=== PATIENT | male | born 1960 | race Caucasian/White ===

== ENCOUNTER 2016-11-15 14:19 | Inpatient (IN) ==
[2016-11-15 14:53] LABS: MANUAL DIFF NEEDED? NO
[2016-11-15 14:56] LABS: BASO% 0.6 % (0.0-0.8); EOS# 0.34 X1000 (0.0-0.7); EOS% 3.1 % (0.0-10.0); HEMATOCRIT 45.9 % (42.0-52.0); HEMOGLOBIN 15.1 g/dL (14.0-18.0); IMM GRAN# 0.08 X1000 (0.0-0.04); IMM GRAN% 0.7 % (0.0-0.5); LYMPH# 1.93 X1000 (1.2-3.4); LYMPH% 17.8 % (20.5-51.1); MCH 31.2 PG (27-31); MCHC 32.9 g/dL (33-37); MCV 94.8 FL (81-99); MONO# 0.81 X1000 (0.11-0.59); MONO% 7.5 % (1.7-9.3); MPV 9.6 FL (7.4-10.4); NEUT% 70.3 % (42.2-75.2); PLT 221 X1000 (130-400); RBC 4.84 XMIL (4.7-6.1)
[2016-11-15 15:11] LABS: INR 0.98 (0.86-1.15); PROTIME 13.3 Seconds (12.1-15.5)
[2016-11-15 15:30] LABS: AGAP 11; ALBUMIN 3.8 g/dL (3.5-5.0); ALKALINE PHOSPHATASE 122 U/L (32-122); BUN 17 mg/dL (8-22); CALCIUM 8.9 mg/dL (8.8-10.2); CHLORIDE 100 mmol/L (98-107); COSMO 282; GOT 16 U/L (10-34); GPT 19 U/L (10-44); SODIUM 138 mmol/L (136-145); TCO2 27 mmol/L (25-35); TOTAL PROTEIN 7.3 g/dL (6.3-8.3)
[2016-11-15] MEDS ORDERED: TYLENOL PO PRN (17:28)
[2016-11-15] MEDS ORDERED: NS 1,000 ML IV ONE (17:28)
--- NOTE | 2016-11-15 17:35 | PROVIDER DOCUMENTATION ---
This chart was entered by Simran Jimenez Scribe, acting as scribe for Wilder Pelletier MD. HPI-General Adult - General Chief Complaint: Extremity Pain Stated Complaint: EXTREMITY PAIN Time Seen by Provider: 11/15/16 15:05 Source: patient Allergies/Adverse Reactions: Patient Allergies Allergy/AdvReac Type Severity Reaction Status Date / Time No Known Allergies Allergy Verified 11/15/16 14:29 Home Medications: Home Medication List Medication Instructions Recorded Confirmed Last Taken Type Apixaban [Eliquis] 5 mg PO DAILY 11/15/16 11/15/16 Unknown History - History of Present Illness -Gen Adult Nature of Presenting Problems: 56 yo M presents to the ER with complaint of LLE swelling and tenderness, x2 weeks worse yesterday and today. Has a hx of DVT and PT x12 years ago after knee surgery. Takes Eloquis daily. Has pain in his L calf and pain is now radiating to his groin. Denies any CP or SOB. Location of Pain/Injury: reports: lower extremity (LLE) Pain Radiation: reports: groin Onset/Duration: reports: other (2 weeks) Associated Symptoms: denies: shortness of breath Review of Systems - Adult - REVIEW OF SYSTEMS - ADULT Constitutional: denies: chills, fever Eyes: reports: no symptoms reported Ears, Nose, Mouth & Throat: reports: no symptoms reported Cardiovascular: denies: chest pain, palpitations Respiratory: denies: cough, shortness of breath Gastrointestinal: reports: no symptoms reported Genitourinary: reports: no symptoms reported Musculoskeletal: reports: joint pain, joint swelling Integumentary: reports: no symptoms reported Neurological: reports: no symptoms reported Psychiatric: reports: no symptoms reported Endocrine: reports: no symptoms reported Hematologic/Lymphatic: reports: no symptoms reported Allergic/Immunologic: reports: no symptoms reported All Other Systems: Reviewed and Negative Past History - Adult - PAST MEDICAL HISTORY-ADULT Review of Records: reports: Nursing Assessment Review, Medications Reviewed - IMMUNIZATION STATUS Childhood Immunizations: See Nurse Assessment Flu Vaccine: See Nurse Assessment Physical Exam-General - PHYSICAL EXAM-ADULT Initial Vital Signs Reviewed: Yes - CONSTITUTIONAL General Appearance: alert, no apparent distress - EYES Eyes: PERRL/EOMI, pink conjunctivae - HEAD, EARS, NOSE, MOUTH & THROAT HENMT: normocephalic/atraumatic, normal ENT inspection - NECK Neck: supple, normal inspection - RESPIRATORY Respiratory: chest non-tender, lungs clear, no respiratory distress, no accessory muscle use - CARDIOVASCULAR Cardiovascular: normal peripheral pulses, regular rate, rhythm. negative: no edema - MUSCULOSKELETAL Back Exam: no CVA tenderness, no vertebral tenderness Extremity: normal capillary refill, calf tenderness (L), inflammation (L calf, L thigh), pedal edema, swelling (L calf, L thigh). negative: pulse deficit Peripheral Pulses: dorsalis-pedis (R): 2+, dorsalis-pedis (L): 2+ - SKIN Integumentary: normal color, warm/dry, erythema (L calf), other (venous pooling of LLE) - NEUROLOGIC Neurologic: grossly normal, no motor/sensory deficits - PSYCHIATRIC Psych/Mental Status: normal mood/affect, normal thought content, normal thought process, oriented x 3 Progress - PLAN OF CARE/RESULTS Progress/Plan/Lab Results: Vital Signs - 8 hr 11/15/16 14:24 Temperature 98 F Pulse Rate 119 H Respiratory Rate 18 Blood Pressure 133/67 O2 Sat by Pulse Oximetry 97 Laboratory Results - last 24 hr 11/15/16 14:40 WBC 10.85 H RBC 4.84 Hgb 15.1 Hct 45.9 MCV 94.8 MCH 31.2 H MCHC 32.9 L RDW Std Deviation 14.6 H Plt Count 221 MPV 9.6 Immature Gran % (Auto) 0.7 H Neut % (Auto) 70.3 Lymph % (Auto) 17.8 L Dickenson % (Auto) 7.5 Eos % (Auto) 3.1 Baso % (Auto) 0.6 Immature Gran # (Auto) 0.08 H Neut # (Auto) 7.63 H Lymph # (Auto) 1.93 Dickenson # (Auto) 0.81 H Eos # (Auto) 0.34 Baso # (Auto) 0.06 Orders Category Date Time Status CBC WITH DIFF [HEME] Stat Lab 11/15/16 14:40 Completed COMPREHENSIVE METABOLIC PANEL [CHEM] Stat Lab 11/15/16 14:40 Received D-DIMER [address] [COAG] Stat Lab 11/15/16 14:40 Received PROTIME WITH INR PL [COAG] Stat Lab 11/15/16 14:40 Received Result Diagrams: 11/15/16 14:40 11/15/16 14:40 - ULTRASOUND (By Radiology) 1 US Study: other (vascular) Impression: Abnormal (extensive DVT from L calf to groin) - CONSULTS/PCP/HOSPITALIST Notification #1 *Consult/PCP/Hospitalist*: Dr. Castro Time Discussed: 17:18 Reason/Comments: Advised hypercoag set and lovenox, then admit Consult Disposition: Admit Departure - Departure Time of Disposition Decision: 17:25 DIAGNOSIS: DVT (deep venous thrombosis) Qualifiers: DVT location: lower extremity Affected thrombotic vein of extremity: femoral Laterality: left Chronicity: acute Qualified Code(s): I82.412 - Acute embolism and thrombosis of left femoral vein Disposition: ADMITTED INPATIENT 09 Certified Medical Emergency: Emergent Condition: Stable Referrals and Follow-Ups: None,PCP [Primary Care Provider] - - Critical Care Note This patient required my direct & personal management of CC.: No This chart was documented by the indicated scribe, (Simran Jimenez Scribe) and accurately reflects the services I performed and decisions made by me, Wilder Pelletier MD, as attested by the provider's signature.
[2016-11-15] MEDS: NORCO-5 PO PRN (17:49)
--- NOTE | 2016-11-15 18:23 | HISTORY AND PHYSICAL ---
CHIEF COMPLAINT: Left lower extremity swelling and pain. HISTORY OF PRESENT ILLNESS: This is a 56-year-old male with a history of prior DVT and PE following orthopedic surgery who presented to the emergency room complaining of 2 weeks of left calf pain. He states over the last 2 days the pain is radiated up into his left groin. He denied any injury, any recent travel or long periods of sitting. Venous Doppler was performed. The patient was found to have a left lower extremity DVT. Labs were drawn. He is given Lovenox 1 mg/kg subcu and he is being admitted for further evaluation and treatment. He has not taken the Eliquis as prescribed as he could not afford any longer not having insurance. He has taken it daily, then not every day. 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 SURGICAL HISTORY: Total knee replaced. SOCIAL HISTORY: He smokes about half a pack a day. He denies alcohol or illicit drug use. ALLERGIES: No known drug allergies. HOME MEDICATIONS: Eliquis 5 mg p.o. daily. REVIEW OF SYSTEMS: 14 point review of systems reveals pertinent positives as in HPI, all other systems negative. PHYSICAL EXAM: CARDIOVASCULAR - Regular rate and rhythm, no rubs, murmurs or gallops appreciated PULMONARY - Bilateral breath sounds clear, chest rises and falls symmetrically with respiration GASTROENTEROLOGY - Abdomen is soft, nontender, with bowel sounds in all 4 quadrants EXTREMITIES - No clubbing, edema or cyanosis. Right calf nontender, Left calf tender, pulses palpable x4 NEUROLOGIC - Alert & oriented X3 DIAGNOSTICS: WBC is 10.8 with a hemoglobin of 15.1, hematocrit 45.9 and platelets of 221,000. D- dimer is 5.38, sodium is 138, potassium 4, BUN 17, creatinine 1.1 with a glucose of 188. ASSESSMENT AND PLAN: 1. Left lower extremity deep vein thrombosis in a patient who has a history of deep vein thrombosis and pulmonary embolism. Hypercoagulable workup was performed in the emergency room. Dr Pelletier did speak with Dr Castro The patient was given a milligram per kilogram of Lovenox. Will continue this b.i.d and transition to Xarelto. This is not likely an Eliquis failure more a compliance failure. Further treatments pending hospital course. Dictated by ELI Beltre for Ronny Brown MD cc: ELI Beltre MD [facility]
[2016-11-15] MEDS: LOVENOX SUBQ SCH (20:41)
[2016-11-16] MEDS: NORCO-5 PO PRN (03:44)
[2016-11-16 07:38] VITALS: BP 138/86
[2016-11-16] MEDS: LOVENOX SUBQ SCH (08:56)
[2016-11-16] MEDS ORDERED: XARELTO PO SCH (11:30)
--- NOTE | 2016-11-16 22:23 | DISCHARGE SUMMARY ---
ADMISSION DATE: 11/15/2016 DISCHARGE DATE: 11/16/2016 DIAGNOSES: 1. Deep venous thrombosis, left lower extremity, in a patient on Eliquis. 2. History of deep venous thrombosis and pulmonary embolism. DIAGNOSTICS: Venous ultrasound of left leg revealed a deep venous thrombosis,acute. HOSPITAL COURSE: Mr. Carpio presented to the emergency room with left lower extremity swelling and calf pain. He was found to have a DVT per venous Doppler. He was initially given Lovenox 1 mg/kg subcutaneous, and transitioned over to Xarelto 15 mg b.i.d. He states that he had a DVT and PE following a knee replacement. This was greater than 8 years ago. He does state that he has not had insurance, and he does not have a primary care physician. Therefore, he has not been compliant with his Eliquis, taking it only daily, and then not every day, trying to stretch the prescription out. DISCHARGE PHYSICAL EXAMINATION: Cardiovascular: Regular rate and rhythm. S1, S2 appreciated. Pulmonary: Breath sounds are clear. No increased work of breathing noted. Gastrointestinal: Abdomen is soft, nontender, nondistended, with bowel sounds in all 4 quadrants. Extremities: No clubbing, cyanosis, or edema. Calves are nontender. Pulses are palpable x4. DISCHARGE MEDICATIONS: Xarelto 15 mg 1 p.o. b.i.d. for 21 days, then Xarelto 20 mg daily. DISCHARGE VITAL SIGNS: Blood pressure is 138/86, with a heart rate of 94, respirations are 16, temperature is 97.5 degrees, with room air saturations of 95-97%. DISCHARGE ACTIVITY: As tolerated. FOLLOWUP: He needs to follow up with ELI Wadsworth, in 1-2 weeks. The patient has been given the phone number to contact this clinic. The patient was given a 30-day starter pack of Xarelto per Dr. Brown, which did contain the 21 days of 15 mg b.i.d., and 1 week of 20 mg. He was also given a prescription for 20 mg tablets daily. He is being discharged home in stable condition with family members. TIME SPENT: This is a greater than 30 minute discharge, from 11:50 to 12:30. Dictated by ELI Beltre for Ronny Brown MD cc: ELI Beltre MD
--- NOTE | 2016-11-18 07:07 | Extremity Venous Study ---
PROCEDURE NAME: Venous U/S Left Leg - 11/15/2016 LEFT LOWER EXTREMITY VENOUS DOPPLER ULTRASOUND: FINDINGS: There is extensive deep venous thrombosis throughout the veins of the left lower extremity including the common femoral vein, superficial femoral vein, popliteal vein, and veins in the calf. IMPRESSION: Extensive left lower extremity deep venous thrombosis. A preliminary report was given to Dr. Pelletier at 5:15 p.m. on 11/15/2016.
== END 2016-11-16 12:35 | disposition home or self-care (01) ==
LOC: P.MEDSURG 14:19 → P.ED 14:19 → OBSVTOIN 18:09 → SUATTDRO 18:09
PROVIDERS: ATTEND Family Medicine

== ENCOUNTER 2017-02-02 14:21 | Inpatient (IN) ==
--- NOTE | 2017-02-02 16:25 | Extremity Venous Study ---
EXAM: Venous U/S Left Leg - 02/02/2017 HISTORY: swollen left leg with hx and tx for dvt in same le TECHNIQUE: Left lower extremity Doppler venous ultrasound COMPARISON: 11/15/2016 FINDINGS: There is thrombus throughout much of the deep venous system of the left lower extremity including the common femoral vein, superficial femoral vein, popliteal vein, and veins of the calf. This is similar to that which was seen on the previous exam. IMPRESSION: Extensive left lower extremity deep venous thrombosis. Electronically signed by Esvin Card 02/02/2017 4:23 PM
[2017-02-02 16:43] LABS: INR 1.18 (0.86-1.15); PROTIME 15.3 Seconds (12.1-15.5); PTT PL 30.7 Seconds (22.6-43.9)
--- NOTE | 2017-02-02 16:56 | PROVIDER DOCUMENTATION ---
This chart was entered by Betsy Ferrer Scribe, acting as scribe for Silvio Noland MD. HPI-Musculoskeletal Pain/Inj - GENERAL Chief Complaint: Extremity Pain Stated Complaint: ABD PAIN/HX OF BLOOD CLOT Time Seen by Provider: 02/02/17 14:49 Source: patient - HX OF PRESENT ILLNESS-MUSKULOSKELTAL Nature of Presenting Problem: Pt is 56 y/o M presents to the ED with L lower leg pain. Pt states hx of DVT's. Pt states was diagnosed with DVT [address] Castro. Pt states he is on blood thinners. Pt states swelling in L lower leg. Pt states swelling went down and then started again. Pt states had an appointment for an outpatient US and did not have all his paperwork so the office canceled the appointment. Quality of Pain: reports: aching Severity in ED: moderate Onset/Duration: other (2 mths) Timing: still present Modifying Factors: improves with: nothing Any recent injury?: No Locality of Occurance: Home Similar Symptoms Previously?: Yes Recently seen or treated by another doctor?: Yes - LOWER EXTREMITY PAIN/INJURY Lower Extremities Pain: leg: left (lower ) Context / Method of Injury: reports: other (hx of DVT's) Associated Symptoms: reports: weakness in legs/feet (L leg) Review of Systems - Adult - REVIEW OF SYSTEMS - ADULT Constitutional: reports: no symptoms reported Eyes: reports: no symptoms reported Ears, Nose, Mouth & Throat: reports: no symptoms reported Cardiovascular: reports: no symptoms reported Respiratory: reports: no symptoms reported Gastrointestinal: reports: no symptoms reported Genitourinary: reports: no symptoms reported Musculoskeletal: reports: other (L lower leg pain). denies: back pain, neck pain Integumentary: reports: other (L lower leg swelling). denies: hives, itching, rash Neurological: reports: no symptoms reported Psychiatric: reports: no symptoms reported Endocrine: reports: no symptoms reported Hematologic/Lymphatic: reports: no symptoms reported Allergic/Immunologic: reports: no symptoms reported All Other Systems: Reviewed and Negative Past History - Adult - PAST MEDICAL HISTORY-ADULT Review of Records: reports: Nursing Assessment Review, Medications Reviewed, Social history reviewed & non-contributory. Major Childhood Illnesses: reports: denies history Cardiovascular: reports: denies history Respiratory: reports: denies history Gastrointestinal: reports: denies history Obstetrical/Gynecological: reports: denies history Genitourinary: reports: denies history Musculoskeletal: reports: denies history Neurological: reports: denies history Endocrine/Immune: reports: denies history Other Conditions: reports: denies history - PRIOR SURGERIES/PROCEDURES Surgical/Procedure History: reports: joint replacement (L knee) - IMMUNIZATION STATUS Childhood Immunizations: See Nurse Assessment Flu Vaccine: See Nurse Assessment - FAMILY HISTORY Family History: reviewed, not pertinent - SOCIAL HISTORY Smoking: cigarettes, greater than 1 pack/day Provider spent 3-5 mins advising pt. on dangers of tobacco.: Discussed manners to quit use, and f/u contacts for add'l counseling. Substance Use: denies Living Situation: family Physical Exam-Injury Related - Physical Exam-Injury Related General Appearance: appears well, alert, no apparent distress Eyes: PERRL/EOMI, pink conjunctivae Head, Ears, Nose, Mouth & Throat: normocephalic/atraumatic, moist mucous membranes, normal ENT inspection Neck: non-tender, full range of motion, supple, normal inspection Respiratory: chest non-tender, lungs clear, normal breath sounds Cardiovascular: normal peripheral pulses, regular rate, rhythm Abdominal Exam: normal bowel sounds, non tender, soft Lymphatic: no adenopathy Back Exam: normal inspection Extremity: erythema (L lower leg), swelling (L lower leg), tenderness (L lower leg) Integumentary: erythema (L lower leg), swelling (L lower leg), tenderness (L lower leg), warm (L lower leg) Neurologic: grossly normal Psych/Mental Status: normal mood/affect, oriented x 3 Progress - PLAN OF CARE/RESULTS Progress/Plan/Lab Results: Vital Signs - 8 hr 02/02/17 14:38 Temperature 98.6 F Pulse Rate 114 H Respiratory Rate 16 Blood Pressure 138/95 O2 Sat by Pulse Oximetry 96 Laboratory Results - last 24 hr 02/02/17 15:55 PT 15.3 INR 1.18 H APTT (Factor Assay) 30.7 D-Dimer 1.96 H Orders Category Date Time Status Ddimer [D-DIMER PL] [COAG] Stat Lab 02/02/17 15:55 Completed [address]IME WITH INR PL [COAG] Stat Lab 02/02/17 15:[address] [COAG] Stat Lab 02/02/17 15:55 Completed Venous U/S Left Leg Stat Ther 02/02/17 15:16 Completed - ULTRASOUND (By Radiology) 1 US Study: other (venous U/S left leg) Impression: Abnormal (extensive left lower extremity deep venous thrombosis.) - CONSULTS/PCP/HOSPITALIST Notification #1 *Consult/PCP/Hospitalist*: Dr. Marcos Time Discussed: 16:48 Reason/Comments: Dr. Noland consulted with Dr. Marcos about Pt. #2 Consult: Dr. Brown Time Discussed: 16:48 (Hospitalist accepted admit ) Reason/Comments: Dr. Noland consulted with Dr. Brown about Pt Consult Disposition: Admit Departure - Departure Date of Disposition Decision: 02/02/17 Time of Disposition Decision: 16:49 DIAGNOSIS: DVT (deep venous thrombosis) Disposition: ADMITTED INPATIENT 09 Certified Medical Emergency: Emergent Condition: Stable Referrals and Follow-Ups: None,PCP [Primary Care Provider] - - Critical Care Note This patient required my direct & personal management of CC.: No This chart was documented by the indicated scribe, (Betsy Ferrer Scribe) and accurately reflects the services I performed and decisions made by me, Silvio Noland MD, as attested by the provider's signature.
[2017-02-02] MEDS ORDERED: LOVENOX 1 MG/KG SUBQ SCH (19:15)
[2017-02-02] MEDS ORDERED: LOVENOX SUBQ ONE (19:26)
[2017-02-02] MEDS ORDERED: DILAUDID IM PRN (19:26)
[2017-02-02] MEDS ORDERED: TYLENOL PO PRN (19:26)
[2017-02-02] MEDS ORDERED: ZOFRAN IV PRN (19:26)
[2017-02-02 19:31] LABS: MANUAL DIFF NEEDED? NO
[2017-02-02 19:37] LABS: BASO% 0.8 % (0.0-0.8); EOS# 0.31 X1000 (0.0-0.7); EOS% 3.3 % (0.0-10.0); HEMATOCRIT 43.3 % (42.0-52.0); HEMOGLOBIN 14.3 g/dL (14.0-18.0); IMM GRAN# 0.04 X1000 (0.0-0.04); IMM GRAN% 0.4 % (0.0-0.5); LYMPH# 2.64 X1000 (1.2-3.4); LYMPH% 27.8 % (20.5-51.1); MCH 30.8 PG (27-31); MCV 93.3 FL (81-99); MONO# 0.96 X1000 (0.11-0.59); MONO% 10.1 % (1.7-9.3); MPV 10.4 FL (7.4-10.4); NEUT% 57.6 % (42.2-75.2); PLT 280 X1000 (130-400); RBC 4.64 XMIL (4.7-6.1)
[2017-02-02 20:15] LABS: AGAP 9; ALBUMIN 3.7 g/dL (3.5-5.0); ALKALINE PHOSPHATASE 115 U/L (32-122); BUN 17 mg/dL (8-22); CHLORIDE 102 mmol/L (98-107); COSMO 277; GOT 20 U/L (10-34); GPT 24 U/L (10-44); SODIUM 138 mmol/L (136-145); TCO2 28 mmol/L (25-35)
--- NOTE | 2017-02-03 00:05 | HISTORY AND PHYSICAL ---
CHIEF COMPLAINT: Left lower extremity swelling and pain. HISTORY OF PRESENT ILLNESS: This is a 56-year-old male with a prior history of DVT and pulmonary embolus who has failed Eliquis and now Xarelto. He presents for evaluation of LLE edema and pain. Venous doppler revealed extensive left lower extremity DVT including the common femoral vein, superficial femoral vein, popliteal vein and veins of the calf. Similar to a venous doppler performed November 2016. Of note, the patient does have a history of prior DVT and PE following surgery and again in November 2016 - Prior to November, he had been prescribed Eliquis and was unable to afford after losing his insurance He had been off Eliquis quite some time, returning with extensive LLE DVT. PAST MEDICAL HISTORY: DVT and PE after total knee replacement then repeat DVT to the left lower extremity in November 2016. PAST SURGICAL HISTORY: Total knee replacement. SOCIAL HISTORY: He smokes about a half a pack a day. He denies alcohol or illicit drug use. ALLERGIES: No known drug allergies. HOME MEDICATIONS: Xarelto 20 mg daily. REVIEW OF SYSTEMS: A 14 point review of systems is discussed with patient with pertinent positives stated in the HPI. All other systems are negative. PHYSICAL EXAMINATION: GENERAL: This is a 56-year-old male who is sitting in the bed with no distress. VITAL SIGNS: Blood pressure is 157/92 with a heart rate of 94, respirations are 18, temperature is 98.4 degrees. HEENT: Head is normocephalic, atraumatic. Pupils equal, round, react to light. EOMs are intact. Sclerae nonicteric. Mucous membranes are moist. NECK: Supple. Trachea midline. CARDIOVASCULAR: Regular rate and rhythm. S1 and S2 appreciated. PULMONARY: Breath sounds are clear. No increased work of breathing noted. GASTROINTESTINAL: Abdomen is soft, nontender, nondistended. Bowel sounds in all 4 quadrants. EXTREMITIES: No clubbing, cyanosis, or edema to the right lower extremity. Left lower extremity is noted edematous to his knee and calf. Pulses are palpable x4. NEUROLOGIC: He is alert and oriented x3. DIAGNOSTICS: Left lower extremity Doppler revealed extensive left lower extremity DVT including the common femoral vein, superficial femoral vein, popliteal vein and veins of the calf. This is similar to his November 2016 ultrasound. CBC and BMP are pending. ASSESSMENT AND PLAN: 1. Known deep vein thrombosis to the left lower extremity. The patient had a prior extensive deep vein thrombosis in November 2016. With Doppler today similar per radiology. Continue Lovenox 1mg/kg bid Dictated by ELI Beltre for Ronny Brown MD cc: ELI Beltre MD [facility]
[2017-02-03 06:55] LABS: HEMATOCRIT 43.9 % (42.0-52.0); HEMOGLOBIN 14.8 g/dL (14.0-18.0); MCH 31.2 PG (27-31); MCHC 33.7 g/dL (33-37); MCV 92.6 FL (81-99); RBC 4.74 XMIL (4.7-6.1)
[2017-02-03 07:14] LABS: AGAP 8; BUN 15 mg/dL (8-22); CALCIUM 8.7 mg/dL (8.8-10.2); CHLORIDE 103 mmol/L (98-107); COSMO 273; SODIUM 136 mmol/L (136-145); TCO2 25 mmol/L (25-35)
[2017-02-03] MEDS ORDERED: XARELTO PO SCH ×2 (09:00→17:00)
--- NOTE | 2017-02-03 09:24 | Diag Imaging Result Doc PS360 ---
EXAM: ANGIOGRAM/PULMONARY ARTERIES INDICATION: CP, known DVT TECHNIQUE: In addition to the standard thin slice CTA protocol, coronal MIPS were obtained. COMPARISON: None. FINDINGS: There is a single small filling defect in a second order branch of the right pulmonary artery extending into third order branches leading to the right lower lobe consistent with acute pulmonary embolism. No other filling defects are appreciated, however. The clot burden is low. There is no evidence of aortic dissection or aneurysm. The heart is borderline prominent. There are shotty borderline prominent to mildly prominent mediastinal and right hilar lymph nodes that are nonspecific. There is bilateral mild subsegmental atelectasis, mainly at the lung bases. The lungs are essentially clear, otherwise. There is no pleural fluid collection and no pneumothorax. IMPRESSION: 1.Acute pulmonary embolism on the right as described above with a light clot burden. 2.Bilateral subsegmental atelectasis. 3.Other incidental/nonacute findings detailed above. The findings were discussed with ELI Beltre at 02/03/2017 9:00 AM. Electronically signed by Beltran Traylor 02/03/2017 9:22 AM
--- NOTE | 2017-02-03 10:52 | EKG Report ---
Test Performed on : 02/03/2017 08:22:15 AM Test Reason : Chest Pain Blood Pressure : / mmHG Vent. Rate : 076 BPM Atrial Rate : 076 BPM P-R Int : 142 ms QRS Dur : 094 ms QT Int : 400 ms P-R-T Axes : 051 -49 -38 degrees QTc Int : 450 ms Normal sinus rhythm. Left anterior fascicular block Cannot rule out Anterior infarct , age undetermined T wave abnormality, consider inferior ischemia Abnormal ECG No previous ECGs available Confirmed by Wilder Pelletier MD ([id number]) on 02/09/2017 10:27:15 PM
[2017-02-03 14:29] VITALS: BP 142/90
--- NOTE | 2017-02-04 16:00 | DISCHARGE SUMMARY ---
ADMISSION DATE: 02/02/2017 DISCHARGE DATE: 02/03/2017 DIAGNOSES: 1. Chronic left lower extremity extensive deep vein thrombosis. 2. Right-sided pulmonary embolus. HOSPITAL COURSE: Mr. Carpio presented to the emergency room after presenting to have a scheduled lower extremity Doppler. He forgot to bring the order, therefore the Doppler cannot be performed, so he opted to be evaluated in the emergency room. The Doppler did reveal extensive left lower extremity DVT, including the common femoral vein, superficial femoral vein, popliteal vein and veins of the calf. This was similar to a Doppler performed in November 2016. He has been on Xarelto. He does state that he is taking this daily. Of note, the patient does have a history of medical noncompliance, having this left lower extremity and being given Eliquis prior to his November 2016 admission. He stopped his Eliquis quite some time before his November visit due to financial reasons. Mr. Carpio had an episode of right-sided chest pain. Therefore a pulmonary arteriogram was performed and he was found to have a small right-sided pulmonary embolus. I did speak with Dr. Castro and Hematology. He recommended that the patient continue his Xarelto and follow up at his scheduled appointment. DISCHARGE PHYSICAL EXAMINATION: Cardiovascular: Regular rate and rhythm. S1, S2 appreciated. Pulmonary: Breath sounds are clear. No increased work of breathing noted. Gastrointestinal: Abdomen is soft, nontender, nondistended with bowel sounds in all 4 quadrants. Extremities: No clubbing, cyanosis, or edema to upper extremities and right lower extremity. Does have a trace edema to his left knee which is chronic. Calves are nontender. Pulses are palpable x4. Discharge Vital Signs: Blood pressure is 140/90 with a heart rate of 90, respirations are 16. Temperature is 97.6 with room air saturations of 97-100. DISCHARGE MEDICATIONS: Xarelto 20 mg daily. FOLLOWUP: He is to follow up with Dr. Castro at his scheduled appointment, sooner if needed. The patient has no insurance and at present, Dr. Castro and his staff are attempting to get assistance for Xarelto. If he is unable to do this, he will handle the patient's anticoagulation. He is being discharged home in stable condition with family members. TIME SPENT: This is a 40 minute discharge. Dictated by ELI Beltre for Ronny Brown MD cc: ELI Beltre MD
== END 2017-02-03 19:00 | disposition home or self-care (01) ==
LOC: P.ED 14:21 → P.MEDSURG 14:21 → OBSVTOIN 17:31
PROVIDERS: ATTEND Family Medicine